=== PATIENT | female | born 1980 | race Caucasian/White ===

== ENCOUNTER 2019-11-15 07:39 | Emergency (ER) | payer BC, MEDICARE ==
[2019-11-15] MEDS ORDERED: Ondansetron 4 MG/2 ML SDV IVPUSH ONE (09:26)
[2019-11-15] MEDS ORDERED: Morphine 2 MG/ML Syringe IVPUSH ONE (09:26)
[2019-11-15] MEDS: Sodium Chloride 0.9% 10 ML Syringe FLUSH PRN ×2 (09:45→09:58)
--- NOTE | 2019-11-15 10:22 | EDM.PDOC ---
ED HPI GENERAL MEDICAL PROBLEM - General Chief Complaint: Head Injury Stated Complaint: Head injury Time Seen by Provider: 11/15/19 07:50 Source of Information: Reports: Patient History Limitations: Reports: No Limitations - History of Present Illness INITIAL COMMENTS - FREE TEXT/NARRATIVE: Pt slipped and fell on the ice Landed on her back Hit the back of her head No LOC Complaining on back and neck pain Also has laceration to back of scalp No other injury Onset: Today, Sudden Duration: Hour(s): Context: Reports: Trauma Head Pain Score (Numeric/FACES): 8 Upper Back Pain Score (Numeric/FACES): 6 Neck Pain Score (Numeric/FACES): 8 - Related Data Allergies Allergy/AdvReac Type Severity Reaction Status Date / Time acetaminophen [From Vicodin] Allergy Nausea and Verified 11/15/19 08:34 Vomiting glycopyrrolate [From Robinul] Allergy Hives Verified 11/15/19 09:29 hydrocodone [From Vicodin] Allergy Nausea and Verified 11/15/19 08:34 Vomiting levonorgestrel [From Mirena] Allergy Hives Verified 11/15/19 08:34 oxycodone Allergy Other Verified 11/15/19 09:29 temazepam [From Restoril] Allergy Shortness Verified 11/15/19 09:29 of Breath trazodone Allergy Shortness Verified 11/15/19 09:29 of Breath Home Meds: Home Meds Dextroamphetamine/Amphetamine [Adderall 20 mg Tablet] 20 mg PO BID 09/09/18 [ History] Calcium Carbonate/Vitamin D3 [Calcium 500 + Vit D Caplet] 2 tab PO DAILY [History] FLUoxetine [PROzac] 20 mg PO DAILY 11/15/19 [History] Fluconazole [Diflucan] 150 mg PO ASDIRECTED 11/15/19 [History] Ibuprofen [Advil] 400 mg PO Q6H PRN 11/15/19 [History] LORazepam [Ativan] 0.5 mg PO BID PRN 11/15/19 [History] Magnesium 500 mg PO DAILY 11/15/19 [History] Melatonin 10 mg PO BEDTIME 11/15/19 [History] Sulfamethoxazole/Trimethoprim [Septra DS] 1 each PO BID 11/15/19 [History] Varenicline Tartrate [Chantix] 1 tab PO ASDIRECTED 11/15/19 [History] Past Medical History - Past Health History Medical/Surgical History: Denies Medical/Surgical History Gastrointestinal History: Reports: Cholelithiasis Psychiatric History: Reports: ADHD Endocrine/Metabolic History: Reports: Obesity/BMI 30+ Social & Family History - Tobacco Use Smoking Status *Q: Current Every Day Smoker Years of Tobacco use: 1 Packs/Tins Daily: 1 - Caffeine Use Caffeine Use: Reports: Coffee, Soda - Alcohol Use Days Per Week of Alcohol Use: 1 Number of Drinks Per Day: 5 Total Drinks Per Week: 5 - Recreational Drug Use Recreational Drug Use: No ED ROS GENERAL - Review of Systems Review Of Systems: See Below HEENT: Reports: Other (Scalp laceration) Respiratory: Reports: No Symptoms Cardiovascular: Reports: No Symptoms GI/Abdominal: Reports: No Symptoms Musculoskeletal: Reports: Neck Pain, Back Pain Neurological: Reports: No Symptoms ED EXAM, HEAD INJURY - Physical Exam Exam: See Below Exam Limited By: No Limitations General Appearance: Moderate Distress Head: Other (Posterior scalp laceration) Eyes: Bilateral Eye: EOMI, PERRL Ears: Normal TMs Nose: Normal Inspection Throat/Mouth: Normal Oropharynx Neck: Tenderness Respiratory: Lungs Clear Cardiovascular: Regular Rate, Rhythm GI/Abdominal Exam: Non-Tender Extremities: Other (Neck and back diffusely tender) Neurologic: No Motor/Sensory Deficits, Normal Mood/Affect, Oriented x 3 ED LACERATION/WOUND & JONI PROC - Laceration/Wound Repair Posterior Head Lac/wound length in cm: 3 Appearance: Superficial Skin Prep: Saline Closed with: [place] # of Sutures: 2 Complications: No Course - Vital Signs Last Recorded V/S: Last Vital Signs Temp 36.8 C 11/15/19 07:40 Pulse 77 11/15/19 07:40 Resp 14 11/15/19 07:40 BP 154/92 H 11/15/19 07:40 Pulse Ox 100 11/15/19 07:40 - Orders/Labs/Meds Orders: Active Orders 24 hr Category Date Time Status Cervical Spine wo Cont [CT] Stat Exams 11/15/19 07:56 Taken Head wo Cont [CT] Stat Exams 11/15/19 07:56 Taken Thoracic Spine wo Cont [CT] Stat Exams 11/15/19 07:55 Taken Sodium Chloride 0.9% [Saline Flush] Med 11/15/19 09:43 Active 10 ml FLUSH ASDIRECTED PRN Medication Orders Sodium Chloride (Saline Flush) 10 ml FLUSH ASDIRECTED PRN PRN Reason: Flush Last Admin: 11/15/19 09:58 Dose: 10 ml Admin: 11/15/19 09:45 Dose: 10 ml Labs: Laboratory Tests 11/15/19 Range/Units 08:08 HCG, Qual Negative (NEGATIVE) Meds: Medications Generic Name Dose Route Start Last Admin Trade Name Freq PRN Reason Stop Dose Admin Sodium Chloride 10 ml 11/15/19 09:43 11/15/19 09:58 Saline Flush FLUSH 10 ml ASDIRECTED PRN Administration Flush Discontinued Medications Generic Name Dose Route Start Last Admin Trade Name Freq PRN Reason Stop Dose Admin Morphine Sulfate 4 mg 11/15/19 09:26 11/15/19 09:57 Morphine IVPUSH 11/15/19 09:27 4 mg ONETIME ONE Administration Ondansetron HCl 4 mg 11/15/19 09:26 11/15/19 09:43 Zofran IVPUSH 11/15/19 09:27 4 mg ONETIME ONE Administration - Re-Assessments/Exams Free Text/Narrative Re-Assessment/Exam: 11/15/19 10:22 Pt given Morphine 4 mg IV and Zofran 4 mg IV in ER Departure - Departure Time of Disposition: 10:30 Disposition: Home, Self-Care 01 Clinical Impression: Scalp laceration Qualifiers: Encounter type: initial encounter Qualified Code(s): S01.01XA - Laceration without foreign body of scalp, initial encounter Back pain Qualifiers: Back pain location: back pain in unspecified location Chronicity: acute Back pain laterality: unspecified Qualified Code(s): M54.9 - Dorsalgia, unspecified - Discharge Information Instructions: Laceration Care, Adult, [id number], Acute Back Pain, Adult Referrals: PCP,Unknown [Primary Care Provider] - Forms: ED Department Discharge, ED Return to Work/School Form Sepsis Event Note - Evaluation Sepsis Screening Result: No Definite Risk - Focused Exam Vital Signs: Vital Signs Temp Pulse Resp BP Pulse Ox 11/15/19 07:40 36.8 C 77 14 154/92 H 100 Date Exam was Performed: 11/15/19 Time Exam was Performed: 10:17 - My Orders Last 24 Hours: My Active Orders 11/15/19 07:55 Thoracic Spine wo Cont [CT] Stat 11/15/19 07:56 Cervical Spine wo Cont [CT] Stat Head wo Cont [CT] Stat 11/15/19 09:43 Sodium Chloride 0.9% [Saline Flush] 10 ml FLUSH ASDIRECTED PRN - Assessment/Plan Last 24 Hours: My Active Orders 11/15/19 07:55 Thoracic Spine wo Cont [CT] Stat 11/15/19 07:56 Cervical Spine wo Cont [CT] Stat Head wo Cont [CT] Stat 11/15/19 09:43 Sodium Chloride 0.9% [Saline Flush] 10 ml FLUSH ASDIRECTED PRN
== END 2019-11-15 10:45 | disposition home or self-care (01) ==
LOC: LL.ED 07:39
DX: S01.01XA Laceration without foreign body of scalp, initial encounter (principal); E66.9 Obesity, unspecified; F17.210 Nicotine dependence, cigarettes, uncomplicated; Z88.8 Allergy status to other drugs, medicaments and biological substances; Z79.899 Other long term (current) drug therapy; W01.10XA Fall on same level from slipping, tripping and stumbling with subsequent striking against unspecified object, initial encounter
CPT/HCPCS: 12002; 36415; 70450; 72125; 72128; 84703; 96374; 96375; 99284-25; J2270; J2405

== ENCOUNTER 2021-02-17 18:32 | Emergency (ER) | payer MEDICARE, MEDICAID ==
[2021-02-17 19:57] LABS: CHLORIDE,CL 105 mmol/L (98-107); SODIUM,NA 141 mmol/L (136-145)
--- NOTE | 2021-02-17 20:28 | EDM.PDOC ---
ED HPI GENERAL MEDICAL PROBLEM - General Chief Complaint: General Stated Complaint: head pain, dizziness, chills, right arm shooting p Time Seen by Provider: 02/17/21 19:06 Source of Information: Reports: Patient History Limitations: Reports: No Limitations - History of Present Illness INITIAL COMMENTS - FREE TEXT/NARRATIVE: Patient comes in with multiple complaints. Had noticed last few days she feels more anxious. Family says she is more irritable. Sometimes feels like there is a spike through her head that causes pain and that runs down into right shoulder area. Shoulder muscles hurt/right neck hurt with movement. [place] chills sometimes today. Lightheaded sensation at times. Just does not feel like usual self. Took an Ativan earlier thinking this might be due to anxiety but no difference noted. No fevers. Has not felt like this before. No visual changes/HEENT complaints otherwise. Denies SOB/respiratory complaints. No anterior chest pain. Has not had naus ea/emesis/bowel changes. No UTI complaints. No focal weakness/numbness. History shows that patient had Vyvanse started several weeks ago. She was started right at the maximum 70mg daily dose and not at the suggested starting dose of 30mg daily with gradual increase of dose on weekly schedule. She was also told to abruptly discontinue her Prozac and stopped that around 5 days ago. Head Pain Score (Numeric/FACES): 4 Right Shoulder Pain Score (Numeric/FACES): 7 - Related Data Allergies Allergy/AdvReac Type Severity Reaction Status Date / Time acetaminophen [From Vicodin] Allergy Nausea and Verified 02/17/21 19:21 Vomiting glycopyrrolate [From Robinul] Allergy Hives Verified 02/17/21 19:21 hydrocodone [From Vicodin] Allergy Nausea and Verified 02/17/21 19:21 Vomiting levonorgestrel [From Mirena] Allergy Hives Verified 02/17/21 19:21 oxycodone Allergy Other Verified 02/17/21 19:21 temazepam [From Restoril] Allergy Shortness Verified 02/17/21 19:21 of Breath trazodone Allergy Shortness Verified 02/17/21 19:21 of Breath Home Meds: Home Meds Calcium Carbonate/Vitamin D3 [Calcium 500 + Vit D Caplet] 2 tab PO DAILY 11/15/19 [History] Ibuprofen [Advil] 400 mg PO Q6H PRN 11/15/19 [History] LORazepam [Ativan] 0.5 mg PO BID PRN 11/15/19 [History] Magnesium 500 mg PO DAILY 11/15/19 [History] Melatonin 10 mg PO BEDTIME PRN 11/15/19 [History] Lisdexamfetamine [Vyvanse] 70 mg PO DAILY 02/17/21 [History] Past Medical History - Past Health History Medical/Surgical History: Denies Medical/Surgical History Gastrointestinal History: Reports: Cholelithiasis Psychiatric History: Reports: ADHD Endocrine/Metabolic History: Reports: Obesity/BMI 30+ Social & Family History - Tobacco Use Tobacco Use Status *Q: Current Every Day Tobacco User Years of Tobacco use: 26 Packs/Tins Daily: 0.5 - Caffeine Use Caffeine Use: Reports: Coffee - Recreational Drug Use Recreational Drug Use: Yes Recreational Drug Type: Reports: Marijuana/Hashish ED ROS GENERAL - Review of Systems Review Of Systems: Comprehensive ROS is negative, except as noted in HPI. ED EXAM, GENERAL - Physical Exam Exam: See Below Exam Limited By: No Limitations General Appearance: Alert, WD/WN, No Apparent Distress Eye Exam: Bilateral Eye: EOMI, PERRL Ears: Normal External Exam, Hearing Grossly Normal Nose: No: Nasal Deformity, Nasal Swelling, Nasal Drainage Throat/Mouth: Normal Lips, Normal Voice, No Airway Compromise Head: Atraumatic, Normocephalic Neck: Supple, Full Range of Motion, Other (mild tenderness palpating right neck musculature/reproduces patient's pain complaint. ) Respiratory/Chest: No Respiratory Distress, Lungs Clear, Normal Breath Sounds, No Accessory Muscle Use, Other (Some tenderness with palpation superior right shoulder and pec muscles which does reproduce some of patient's pain complaint. ) Cardiovascular: Normal Peripheral Pulses, Regular Rate, Rhythm, No Edema, No Mur mur GI/Abdominal: Normal Bowel Sounds, Soft, Non-Tender, No Distention (Female) Exam: Deferred Rectal (Female) Exam: Deferred Back Exam: Normal Inspection Extremities: Normal Inspection, Normal Range of Motion, Non-Tender, No Pedal Edema, Normal Capillary Refill Neurological: Alert, Oriented, CN II-XII Intact, Normal Cognition, Normal Gait, No Motor/Sensory Deficits Psychiatric: Normal Affect, Normal Mood Skin Exam: Warm, Dry, Intact, Normal Color #1 Interpretation EKG Date: 02/17/21 Time: 19:53 Rhythm: NSR Rate (Beats/Min): 74 [place]: Normal P-Wave: Present QRS: Normal ST-T: Other (no obvious changes suggestive of acute ischemia/ME) QT: Normal Course - Vital Signs Last Recorded V/S: Last Vital Signs Temp 36.1 C 02/17/21 18:34 Pulse 78 02/17/21 18:34 Resp 20 02/17/21 18:34 BP 139/86 02/17/21 18:34 Pulse Ox 100 02/17/21 18:34 - Orders/Labs/Meds Orders: Active Orders 24 hr Category Date Time Status EKG Documentation Completion [RC] ASDIRECTED Care 02/17/21 19:38 Ordered Chest 2V [CR] Stat Exams 02/17/21 19:38 Ordered Labs: Laboratory Tests 02/17/21 02/17/21 02/17/21 Range/Units 19:10 19:10 19:10 WBC 8.0 (4.0-10.2) K/uL RBC 4.31 (3.77-5.09) M/uL Hgb 12.5 (11.7-15.5) g/dL Hct 37.1 (34.0-46.0) % MCV 86.1 D (84.0-98.0) fL MCH 29.0 (28.2-33.3) pg MCHC 33.7 (31.7-36.0) g/dL RDW 13.4 (11.2-14.1) % Plt Count 278 (150-350) K/uL Neut % (Auto) 65.5 (45.0-80.0) % Lymph % (Auto) 24.3 (10.0-50.0) % [place] % (Auto) 8.5 (2.0-14.0) % Eos % (Auto) 1.4 (0.0-5.0) % Baso % (Auto) 0.3 (0.0-2.0) % Neut # (Auto) 5.23 (1.40-7.00) K/uL Lymph # (Auto) 1.94 (0.50-3.50) K/uL [place] # (Auto) 0.68 (0.00-1.00) K/uL Eos # (Auto) 0.11 (0.00-0.50) K/uL Baso # (Auto) 0.02 (0.00-0.20) K/uL D-Dimer, Quantitative < 100 (0-400) ng/mL Sodium 141 (136-145) mmol/L Potassium 3.7 (3.5-5.1) mmol/L Chloride 105 (98-107) mmol/L Carbon Dioxide 24.4 (21.0-32.0) mmol/L BUN 13 (7-18) mg/dL Creatinine 0.70 (0.51-1.17) mg/dL Est Cr Clr Drug Dosing TNP Estimated GFR (MDRD) > 60 mL/min Glucose 99 (70-99) mg/dL Calcium 8.8 (8.5-10.1) mg/dL Magnesium 2.1 (1.8-2.4) mg/dL Total Bilirubin 0.3 (0.2-1.0) mg/dL AST 13 L (15-37) U/L ALT 27 (12-78) U/L Alkaline Phosphatase 68 (46-116) IU/L Troponin I 0.000 (0.000-0.056) ng/mL Total Protein 7.5 (6.4-8.2) g/dL Albumin 4.0 (3.4-5.0) g/dL - Re-Assessments/Exams Free Text/Narrative Re-Assessment/Exam: 02/17/21 21:34 Chest xray unremarkable. CBC/Chem/Trop/DDimer/Mg unremarkable. Pain complaint is reproduced by palpation and movement. Patient's multiple complaints are consistent with frequently observed withdrawal symptoms from sudden SSRI discontinuation. These include the head "zingers", chills, muscle aches, moodiness, and dizziness. It is suspected that she most likely is suffering from SSRI withdrawal. Plan at this time is to have patient take a Prozac tonight when she gets home. A taper protocol was worked out for her to do over the next three weeks. It is also concerning that she was placed on the top dose of Vyvanse immediately without the usual starting level and gradual titration to higher doses as needed. It is requested that she review that with her provider and consider a lower daily dose if it seems appropriate. Patient is to continue to observe for changes and return as needed for recheck if symptoms do not improve or if things worsen. Patient agreeable with plan. Departure - Departure Time of Disposition: 20:24 Disposition: Home, Self-Care 01 Condition: Good Clinical Impression: Medication withdrawal Qualifiers: Substance type: other psychoactive substance Qualified Code(s): F19.939 - Other psychoactive substance use, unspecified with withdrawal, unspecified - Discharge Information *PRESCRIPTION DRUG MONITORING PROGRAM REVIEWED*: Not Applicable *COPY OF PRESCRIPTION DRUG MONITORING REPORT IN PATIENT GRICEL: Not Applicable Referrals: PCP,None [Primary Care Provider] - Forms: ED Department Discharge Additional Instructions: Take one Prozac when you get home. Take Prozac every other day for one week. On week two go to every 3rd day. You may want to go to twice in one week on week 3. They completely discontinue the medication. Follow up in the ER if you have any problems/concerns/new symptoms. Sepsis Event Note (ED) - Evaluation Sepsis Screening Result: No Definite Risk - Focused Exam Vital Signs: Vital Signs Temp Pulse Resp BP Pulse Ox 02/17/21 18:34 36.1 C 78 20 139/86 100 - My Orders Last 24 Hours: My Active Orders 02/17/21 19:38 EKG Documentation Completion [RC] ASDIRECTED Chest 2V [CR] Stat - Assessment/Plan Last 24 Hours: My Active Orders 02/17/21 19:38 EKG Documentation Completion [RC] ASDIRECTED Chest 2V [CR] Stat
== END 2021-02-17 20:40 | disposition home or self-care (01) ==
LOC: LL.ED 18:32
DX: F19.939 Other psychoactive substance use, unspecified with withdrawal, unspecified (principal); E66.9 Obesity, unspecified; Z88.6 Allergy status to analgesic agent; Z88.5 Allergy status to narcotic agent; Z88.8 Allergy status to other drugs, medicaments and biological substances; Z72.0 Tobacco use; Z79.899 Other long term (current) drug therapy
CPT/HCPCS: 36415; 71046; 80053; 83735; 84484; 85025; 85379; 93005; 99283; 99284-25